=== PATIENT | female | born 1945 | race Caucasian/White ===

== ENCOUNTER → 2021-11-18 | Outpatient (CLI) | payer OTHER ==
--- NOTE | 2021-11-18 17:20 | REP ---
INDICATION: OTHER SPECIFIED SOFT TISSUE DISORDERS COMPARISON: None. TECHNIQUE: AP, lateral, bilateral oblique views right foot. FINDINGS: Osseous structures, joint spaces, and surrounding soft tissues are essentially age-appropriate. No obvious, overt osteoarthritic or inflammatory arthritic changes are appreciated. No evidence for acute or healed injury. No subcutaneous emphysema or foreign body. IMPRESSION: Essentially age-appropriate right foot radiograph series. <Electronically signed by Kye Arce > 11/18/21 [id number]
--- NOTE | 2021-11-18 17:21 | REP ---
INDICATION: OTHER SPECIFIED SOFT TISSUE DISORDERS/XRAY 1ST, LAB 2ND COMPARISON: None. TECHNIQUE: AP, lateral, bilateral oblique views. FINDINGS: Mild swelling over the lateral malleolus is suggested. Subtle cortical irregularity at the medial malleolus likely represents age-related changes. The ankle mortise is normal. There is no evidence for acute fracture or dislocation. No subcutaneous emphysema or foreign body. IMPRESSION: Questionable mild swelling and age-related degenerative changes. <Electronically signed by Kye Arce > 11/18/21 [id number]
[2021-11-18 17:56] LABS: BASO % 0.6 % (0.0-1.0); EOS # 0.1 10^3/uL (0.0-0.5); EOS % 1.7 % (0.0-3.0); HEMATOCRIT 41.4 % (36.0-47.0); HEMOGLOBIN 13.3 g/dl (12.0-15.5); LYMPH # 2.1 10^3/uL (1.5-5.0); LYMPH % 39.4 % (24.0-44.0); MEAN CORPUSCULAR HEMOGLOBIN 27.4 pg (27.0-33.0); MEAN CORPUSCULAR HGB CONC 32.1 g/dl (32.0-36.5); MEAN CORPUSCULAR VOLUME 85.2 fl (80.0-96.0); MONO # 0.5 10^3/uL (0.0-0.8); MONO % 9.8 % (2.0-8.0); NEUTROPHILS # 2.6 10^3/uL (1.5-8.5); NEUTROPHILS % 48.1 % (36.0-66.0); PLATELET COUNT, AUTOMATED 172 10^3/uL (150-450); RED BLOOD COUNT 4.86 10^6/uL (4.00-5.40); WHITE BLOOD COUNT 5.3 10^3/uL (4.0-10.0)
[2021-11-18 18:04] LABS: HEMOGLOBIN A1c 7.3 %
[2021-11-18 18:05] LABS: INR 1.38; PROTHROMBIN TIME 17.4 SECONDS (12.7-14.5)
[2021-11-18 18:34] LABS: CREATININE, URINE 58.1 MG/DL; MAU/CREAT RATIO 1092.9 MCG/MG (0.0-30.0)
[2021-11-18 18:45] LABS: ALBUMIN 3.7 GM/DL (3.2-5.2); ALT/SGPT 32 U/L (12-78); BILIRUBIN,TOTAL 0.2 MG/DL (0.2-1.0); BLOOD UREA NITROGEN 25 MG/DL (7-18); CALCIUM LEVEL 8.7 MG/DL (8.8-10.2); CARBON DIOXIDE LEVEL 29 MEQ/L (21-32); CHLORIDE LEVEL 108 MEQ/L (98-107); CHOLESTEROL LEVEL 164 MG/DL (<200); CHOLESTEROL RISK RATIO 7.454 (<5); CREATININE FOR GFR 0.83 MG/DL (0.55-1.30); GLOMERULAR FILTRATION RATE > 60.0 (>39); GLUCOSE, FASTING 248 MG/DL (70-100); HDL CHOLESTEROL 22 MG/DL (>40); NON-HDL-C 142 MG/DL; POTASSIUM SERUM 3.9 MEQ/L (3.5-5.1); SODIUM LEVEL 142 MEQ/L (136-145); TOTAL 25(OH) VITAMIN D 21.1 NG/ML (30.0-100.0); TRIGLYCERIDES LEVEL 1181 MG/DL (<150)
== END ==
LOC: M RAD 16:50
PROVIDERS: ATTEND Physician Assistant
DX: M79.89 Other specified soft tissue disorders (principal); I10 Essential (primary) hypertension; E11.40 Type 2 diabetes mellitus with diabetic neuropathy, unspecified; Z79.01 Long term (current) use of anticoagulants

== ENCOUNTER → 2021-11-22 | Outpatient (CLI) | payer OTHER ==
--- NOTE | 2021-11-22 11:49 | REP ---
INDICATION: RT FOOT SWELLING PT NEEDS LABS AFTER US. COMPARISON: None. TECHNIQUE: Multiple ultrasonographic images of the deep venous structures of the right lower extremity were obtained from the inguinal ligament to the ankle. Venous compression techniques, color doppler imaging, and augmentation techniques were also obtained where appropriate. As per the ACR guidelines the anterior tibial vein can not be effectively evaluated. Only compression techniques in the calf on the peroneal and posterior tibial veins was attempted/performed. FINDINGS: There is no abnormal echogenic material seen within any of the visualized deep venous structures that would suggest acute thrombosis. Coaptation is unremarkable throughout. Doppler interrogation shows an expected response to respiratory variability and augmentation in the thigh. Compression techniques in the calf were unobtainable. The color flow images show what appears to be a normal vascular pattern throughout the thigh. A 3.9 x 3.3 x 0.7 cm sized complex cystic area was seen in the popliteal fossa. IMPRESSION: There is no ultrasonographic evidence of deep venous thrombosis involving any of the visualized deep venous structures of the right lower extremity as described above. Due to technical parameters calf vein DVT can not be ruled out. 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 <Electronically signed by Tom Lynch > 11/22/21 [id number]
[2021-11-22 12:22] LABS: INR 1.92; PROTHROMBIN TIME 22.4 SECONDS (12.7-14.5)
== END ==
LOC: M RAD 11:10
PROVIDERS: ATTEND Physician Assistant
DX: R22.41 Localized swelling, mass and lump, right lower limb (principal)

== ENCOUNTER → 2021-12-01 | Outpatient (REF) | payer OTHER ==
[2021-12-01 16:17] LABS: BASO % 0.4 % (0.0-1.0); EOS # 0.1 10^3/uL (0.0-0.5); EOS % 1.5 % (0.0-3.0); HEMATOCRIT 41.8 % (36.0-47.0); LYMPH # 1.8 10^3/uL (1.5-5.0); LYMPH % 33.6 % (24.0-44.0); MEAN CORPUSCULAR HEMOGLOBIN 26.6 pg (27.0-33.0); MEAN CORPUSCULAR HGB CONC 31.1 g/dl (32.0-36.5); MEAN CORPUSCULAR VOLUME 85.7 fl (80.0-96.0); MONO # 0.6 10^3/uL (0.0-0.8); MONO % 11.5 % (2.0-8.0); NEUTROPHILS # 2.8 10^3/uL (1.5-8.5); NEUTROPHILS % 52.8 % (36.0-66.0); PLATELET COUNT, AUTOMATED 153 10^3/uL (150-450); RED BLOOD COUNT 4.88 10^6/uL (4.00-5.40); WHITE BLOOD COUNT 5.3 10^3/uL (4.0-10.0)
[2021-12-01 16:58] LABS: ALBUMIN 3.8 GM/DL (3.2-5.2); ALT/SGPT 23 U/L (12-78); BILIRUBIN,TOTAL 0.3 MG/DL (0.2-1.0); BLOOD UREA NITROGEN 21 MG/DL (7-18); CALCIUM LEVEL 8.9 MG/DL (8.8-10.2); CARBON DIOXIDE LEVEL 29 MEQ/L (21-32); CHLORIDE LEVEL 105 MEQ/L (98-107); CHOLESTEROL LEVEL 131 MG/DL (<200); CREATININE FOR GFR 0.83 MG/DL (0.55-1.30); GLOMERULAR FILTRATION RATE > 60.0 (>39); GLUCOSE, FASTING 120 MG/DL (70-100); HDL CHOLESTEROL 50 MG/DL (>40); LDL CHOLESTEROL 49 MG/DL (<100); NON-HDL-C 81 MG/DL; SODIUM LEVEL 139 MEQ/L (136-145); TOTAL 25(OH) VITAMIN D 36.5 NG/ML (30.0-100.0); TOTAL PROTEIN 7.8 GM/DL (6.4-8.2); TRIGLYCERIDES LEVEL 161 MG/DL (<150)
[2021-12-01 18:24] LABS: HEMOGLOBIN A1c 7.6 %
== END ==
LOC: M SFHCCAPE 08:29
PROVIDERS: ATTEND Physician Assistant
DX: I10 Essential (primary) hypertension (principal); E11.40 Type 2 diabetes mellitus with diabetic neuropathy, unspecified

== ENCOUNTER → 2021-12-07 | Outpatient (REF) | payer OTHER ==
[2021-12-07 16:15] LABS: INR 2.35; PROTHROMBIN TIME 26.1 SECONDS (12.7-14.5)
== END ==
LOC: M SFHCCAPE 13:00
PROVIDERS: ATTEND Physician Assistant
DX: Z51.81 Encounter for therapeutic drug level monitoring (principal); Z79.01 Long term (current) use of anticoagulants

== ENCOUNTER → 2021-12-28 | Outpatient (REF) | payer OTHER ==
[2021-12-28 16:27] LABS: INR 1.67; PROTHROMBIN TIME 20.1 SECONDS (12.7-14.5)
== END ==
LOC: M SFHCCAPE 13:01
PROVIDERS: ATTEND Physician Assistant
DX: Z51.81 Encounter for therapeutic drug level monitoring (principal); Z79.01 Long term (current) use of anticoagulants

== ENCOUNTER → 2022-01-04 | Outpatient (REF) | payer OTHER ==
[2022-01-04 16:36] LABS: INR 2.5; PROTHROMBIN TIME 27.4 SECONDS (12.7-14.5)
== END ==
LOC: M SFHCCAPE 10:45
PROVIDERS: ATTEND Physician Assistant
DX: Z51.81 Encounter for therapeutic drug level monitoring (principal); Z79.01 Long term (current) use of anticoagulants

== ENCOUNTER → 2022-01-18 | Outpatient (REF) | payer OTHER ==
[2022-01-18 16:38] LABS: INR 2.13; PROTHROMBIN TIME 24.2 SECONDS (12.7-14.5)
== END ==
LOC: M SFHCCAPE 08:04
PROVIDERS: ATTEND Physician Assistant
DX: Z51.81 Encounter for therapeutic drug level monitoring (principal); Z79.01 Long term (current) use of anticoagulants

== ENCOUNTER → 2022-02-01 | Outpatient (REF) | payer OTHER ==
[2022-02-01 16:32] LABS: INR 2.62; PROTHROMBIN TIME 28.4 SECONDS (12.7-14.5)
== END ==
LOC: M SFHCCAPE 08:01
PROVIDERS: ATTEND Physician Assistant
DX: Z79.01 Long term (current) use of anticoagulants (principal)

== ENCOUNTER → 2022-02-21 | Outpatient (REF) | payer OTHER ==
[2022-02-21 16:18] LABS: BASO % 0.6 % (0.0-1.0); EOS # 0.1 10^3/uL (0.0-0.5); EOS % 1.6 % (0.0-3.0); HEMATOCRIT 39.3 % (36.0-47.0); HEMOGLOBIN 12.8 g/dl (12.0-15.5); LYMPH # 1.6 10^3/uL (1.5-5.0); LYMPH % 31.9 % (24.0-44.0); MEAN CORPUSCULAR HEMOGLOBIN 27.4 pg (27.0-33.0); MEAN CORPUSCULAR HGB CONC 32.6 g/dl (32.0-36.5); MEAN CORPUSCULAR VOLUME 84.2 fl (80.0-96.0); MONO # 0.6 10^3/uL (0.0-0.8); MONO % 11.3 % (2.0-8.0); NEUTROPHILS # 2.6 10^3/uL (1.5-8.5); NEUTROPHILS % 54.2 % (36.0-66.0); PLATELET COUNT, AUTOMATED 148 10^3/uL (150-450); RED BLOOD COUNT 4.67 10^6/uL (4.00-5.40); WHITE BLOOD COUNT 4.9 10^3/uL (4.0-10.0)
[2022-02-21 16:24] LABS: INR 2.38; PROTHROMBIN TIME 26.4 SECONDS (12.7-14.5)
[2022-02-21 16:45] LABS: ALBUMIN 3.9 GM/DL (3.2-5.2); ALT/SGPT 31 U/L (12-78); BILIRUBIN,TOTAL 0.2 MG/DL (0.2-1.0); BLOOD UREA NITROGEN 20 MG/DL (7-18); CALCIUM LEVEL 8.8 MG/DL (8.8-10.2); CARBON DIOXIDE LEVEL 30 MEQ/L (21-32); CHLORIDE LEVEL 106 MEQ/L (98-107); CHOLESTEROL LEVEL 116 MG/DL (<200); CHOLESTEROL RISK RATIO 3.052 (<5); CREATININE FOR GFR 0.82 MG/DL (0.55-1.30); GLOMERULAR FILTRATION RATE > 60.0 (>39); GLUCOSE, FASTING 162 MG/DL (70-100); HDL CHOLESTEROL 38 MG/DL (>40); LDL CHOLESTEROL 16 MG/DL (<100); NON-HDL-C 78 MG/DL; POTASSIUM SERUM 4.1 MEQ/L (3.5-5.1); SODIUM LEVEL 140 MEQ/L (136-145); TOTAL PROTEIN 7.7 GM/DL (6.4-8.2); TRIGLYCERIDES LEVEL 308 MG/DL (<150)
[2022-02-21 16:52] LABS: TOTAL 25(OH) VITAMIN D 58.7 NG/ML (30.0-100.0)
== END ==
LOC: M SFHCCAPE 08:27
PROVIDERS: ATTEND Physician Assistant
DX: E11.40 Type 2 diabetes mellitus with diabetic neuropathy, unspecified (principal); Z79.01 Long term (current) use of anticoagulants; E55.9 Vitamin D deficiency, unspecified

== ENCOUNTER → 2022-03-09 | Outpatient (REF) | payer OTHER ==
[2022-03-09 16:28] LABS: INR 1.81; PROTHROMBIN TIME 21.4 SECONDS (12.7-14.5)
== END ==
LOC: M SFHCCAPE 08:22
PROVIDERS: ATTEND Physician Assistant
DX: E11.40 Type 2 diabetes mellitus with diabetic neuropathy, unspecified (principal); Z79.01 Long term (current) use of anticoagulants; E55.9 Vitamin D deficiency, unspecified

== ENCOUNTER → 2022-03-17 | Outpatient (REF) | payer OTHER ==
[2022-03-17 16:26] LABS: INR 2.24; PROTHROMBIN TIME 25.2 SECONDS (12.7-14.5)
== END ==
LOC: M SFHCCAPE 08:26
PROVIDERS: ATTEND Physician Assistant
DX: E11.40 Type 2 diabetes mellitus with diabetic neuropathy, unspecified (principal); Z79.01 Long term (current) use of anticoagulants; E55.9 Vitamin D deficiency, unspecified

== ENCOUNTER → 2022-04-07 | Outpatient (REF) | payer OTHER ==
[2022-04-07 16:15] LABS: INR 1.96; PROTHROMBIN TIME 22.7 SECONDS (12.7-14.5)
== END ==
LOC: M SFHCCAPE 13:27
PROVIDERS: ATTEND Physician Assistant
DX: Z79.01 Long term (current) use of anticoagulants (principal)

== ENCOUNTER → 2022-04-14 | Outpatient (REF) | payer OTHER ==
[2022-04-14 16:53] LABS: INR 2.77; PROTHROMBIN TIME 29.6 SECONDS (12.7-14.5)
== END ==
LOC: M SFHCCAPE 07:35
PROVIDERS: ATTEND Physician Assistant
DX: E11.40 Type 2 diabetes mellitus with diabetic neuropathy, unspecified (principal); Z79.01 Long term (current) use of anticoagulants; E55.9 Vitamin D deficiency, unspecified

== ENCOUNTER → 2022-04-25 | Outpatient (CLI) | payer OTHER ==
[2022-04-25 11:47] LABS: BASO % 0.4 % (0.0-1.0); EOS # 0.1 10^3/uL (0.0-0.5); EOS % 1.2 % (0.0-3.0); HEMATOCRIT 40.3 % (36.0-47.0); LYMPH # 1.8 10^3/uL (1.5-5.0); LYMPH % 35.4 % (24.0-44.0); MEAN CORPUSCULAR HEMOGLOBIN 27.3 pg (27.0-33.0); MEAN CORPUSCULAR HGB CONC 32.3 g/dl (32.0-36.5); MEAN CORPUSCULAR VOLUME 84.5 fl (80.0-96.0); MONO # 0.5 10^3/uL (0.0-0.8); MONO % 10.1 % (2.0-8.0); NEUTROPHILS # 2.6 10^3/uL (1.5-8.5); NEUTROPHILS % 52.5 % (36.0-66.0); PLATELET COUNT, AUTOMATED 131 10^3/uL (150-450); RED BLOOD COUNT 4.77 10^6/uL (4.00-5.40)
[2022-04-25 11:55] LABS: INR 3.07
[2022-04-25 12:22] LABS: ALBUMIN 3.5 GM/DL (3.2-5.2); ALT/SGPT 32 U/L (12-78); BILIRUBIN,TOTAL 0.3 MG/DL (0.2-1.0); BLOOD UREA NITROGEN 17 MG/DL (7-18); CALCIUM LEVEL 9.4 MG/DL (8.8-10.2); CARBON DIOXIDE LEVEL 29 MEQ/L (21-32); CHLORIDE LEVEL 107 MEQ/L (98-107); CHOLESTEROL LEVEL 154 MG/DL (<200); CHOLESTEROL RISK RATIO 3.422 (<5); CREATININE FOR GFR 0.79 MG/DL (0.55-1.30); GLOMERULAR FILTRATION RATE > 60.0 (>39); GLUCOSE, FASTING 120 MG/DL (70-100); HDL CHOLESTEROL 45 MG/DL (>40); NON-HDL-C 109 MG/DL; POTASSIUM SERUM 4.2 MEQ/L (3.5-5.1); SODIUM LEVEL 142 MEQ/L (136-145); TOTAL 25(OH) VITAMIN D 29.2 NG/ML (30.0-100.0); TOTAL PROTEIN 7.1 GM/DL (6.4-8.2); TRIGLYCERIDES LEVEL 443 MG/DL (<150)
[2022-04-25 12:50] LABS: MAU/CREAT RATIO 962.1 MCG/MG (0.0-30.0)
[2022-04-25 12:59] LABS: HEMOGLOBIN A1c 8.6 %
== END ==
LOC: M LAB 10:59
PROVIDERS: ATTEND Physician Assistant
DX: E11.40 Type 2 diabetes mellitus with diabetic neuropathy, unspecified (principal)

== ENCOUNTER → 2022-05-05 | Outpatient (REF) | payer OTHER ==
[2022-05-05 16:37] LABS: INR 2.49; PROTHROMBIN TIME 27.3 SECONDS (12.7-14.5)
== END ==
LOC: M SFHCCAPE 08:54
PROVIDERS: ATTEND Physician Assistant
DX: E11.40 Type 2 diabetes mellitus with diabetic neuropathy, unspecified (principal); Z79.01 Long term (current) use of anticoagulants; E55.9 Vitamin D deficiency, unspecified

== ENCOUNTER → 2022-05-12 | Outpatient (REF) | payer OTHER ==
[2022-05-12 16:34] LABS: INR 2.12; PROTHROMBIN TIME 24.1 SECONDS (12.7-14.5)
[2022-05-12 16:41] LABS: BLOOD UREA NITROGEN 22 MG/DL (7-18); CALCIUM LEVEL 9.2 MG/DL (8.8-10.2); CARBON DIOXIDE LEVEL 27 MEQ/L (21-32); CHLORIDE LEVEL 108 MEQ/L (98-107); GLOMERULAR FILTRATION RATE > 60.0 (>39); GLUCOSE, FASTING 221 MG/DL (70-100); POTASSIUM SERUM 4.8 MEQ/L (3.5-5.1); SODIUM LEVEL 140 MEQ/L (136-145)
[2022-05-12 16:44] LABS: BASO % 0.7 % (0.0-1.0); EOS # 0.1 10^3/uL (0.0-0.5); EOS % 1.9 % (0.0-3.0); HEMATOCRIT 38.8 % (36.0-47.0); HEMOGLOBIN 12.6 g/dl (12.0-15.5); LYMPH # 1.4 10^3/uL (1.5-5.0); MEAN CORPUSCULAR HGB CONC 32.5 g/dl (32.0-36.5); MEAN CORPUSCULAR VOLUME 86.2 fl (80.0-96.0); MONO # 0.5 10^3/uL (0.0-0.8); MONO % 12.8 % (2.0-8.0); NEUTROPHILS # 2.2 10^3/uL (1.5-8.5); NEUTROPHILS % 52.4 % (36.0-66.0); PLATELET COUNT, AUTOMATED 150 10^3/uL (150-450); WHITE BLOOD COUNT 4.2 10^3/uL (4.0-10.0)
== END ==
LOC: M SFHCCAPE 07:36
PROVIDERS: ATTEND Physician Assistant
DX: E11.69 Type 2 diabetes mellitus with other specified complication (principal)

== ENCOUNTER → 2022-05-31 | Outpatient (REF) | payer OTHER ==
[2022-05-31 16:09] LABS: INR 2.14; PROTHROMBIN TIME 24.3 SECONDS (12.7-14.5)
== END ==
LOC: M SFHCCAPE 10:41
PROVIDERS: ATTEND Physician Assistant
DX: E11.40 Type 2 diabetes mellitus with diabetic neuropathy, unspecified (principal); Z79.01 Long term (current) use of anticoagulants; E55.9 Vitamin D deficiency, unspecified

== ENCOUNTER → 2022-06-22 | Outpatient (REF) | payer OTHER ==
[2022-06-22 17:25] LABS: INR 2.21
== END ==
LOC: M SFHCCAPE 07:45
PROVIDERS: ATTEND Physician Assistant
DX: E11.40 Type 2 diabetes mellitus with diabetic neuropathy, unspecified (principal); Z79.01 Long term (current) use of anticoagulants; E55.9 Vitamin D deficiency, unspecified

== ENCOUNTER → 2022-07-06 | Outpatient (REF) | payer OTHER ==
[2022-07-06 17:42] LABS: PROTHROMBIN TIME 23.1 SECONDS (12.7-14.5)
== END ==
LOC: M SFHCCAPE 07:52
PROVIDERS: ATTEND Physician Assistant
DX: D68.51 Activated protein C resistance (principal); Z79.01 Long term (current) use of anticoagulants

== ENCOUNTER → 2022-07-19 | Outpatient (REF) | payer OTHER ==
[2022-07-19 17:33] LABS: BASO % 0.6 % (0.0-1.0); EOS # 0.1 10^3/uL (0.0-0.5); EOS % 1.7 % (0.0-3.0); HEMOGLOBIN 13.3 g/dl (12.0-15.5); LYMPH # 1.6 10^3/uL (1.5-5.0); LYMPH % 28.8 % (24.0-44.0); MEAN CORPUSCULAR HEMOGLOBIN 26.9 pg (27.0-33.0); MEAN CORPUSCULAR HGB CONC 31.7 g/dl (32.0-36.5); MEAN CORPUSCULAR VOLUME 84.8 fl (80.0-96.0); MONO # 0.6 10^3/uL (0.0-0.8); MONO % 11.6 % (2.0-8.0); NEUTROPHILS # 3.1 10^3/uL (1.5-8.5); NEUTROPHILS % 57.1 % (36.0-66.0); PLATELET COUNT, AUTOMATED 139 10^3/uL (150-450); RED BLOOD COUNT 4.95 10^6/uL (4.00-5.40); WHITE BLOOD COUNT 5.4 10^3/uL (4.0-10.0)
[2022-07-19 17:46] LABS: INR 1.96; PROTHROMBIN TIME 22.8 SECONDS (12.7-14.5)
[2022-07-19 18:27] LABS: BLOOD UREA NITROGEN 27 MG/DL (7-18); CALCIUM LEVEL 10.2 MG/DL (8.8-10.2); CARBON DIOXIDE LEVEL 25 MEQ/L (21-32); CHLORIDE LEVEL 106 MEQ/L (98-107); CREATININE FOR GFR 0.89 MG/DL (0.55-1.30); GLOMERULAR FILTRATION RATE > 60.0 (>39); GLUCOSE, FASTING 135 MG/DL (70-100); POTASSIUM SERUM 4.5 MEQ/L (3.5-5.1); SODIUM LEVEL 138 MEQ/L (136-145)
== END ==
LOC: M SFHCCAPE 09:11
PROVIDERS: ATTEND Physician Assistant
DX: Z79.01 Long term (current) use of anticoagulants (principal); D68.51 Activated protein C resistance

== ENCOUNTER → 2022-08-01 | Outpatient (REF) | payer OTHER ==
[2022-08-01 18:11] LABS: INR 1.04; PROTHROMBIN TIME 14.1 SECONDS (12.7-14.5)
== END ==
LOC: M SFHCCAPE 13:36
PROVIDERS: ATTEND Physician Assistant
DX: D68.51 Activated protein C resistance (principal); Z79.01 Long term (current) use of anticoagulants

== ENCOUNTER → 2022-08-04 | Outpatient (REF) | payer OTHER ==
[2022-08-04 17:27] LABS: INR 1.8; PROTHROMBIN TIME 21.3 SECONDS (12.7-14.5)
== END ==
LOC: M SFHCCAPE 11:24
PROVIDERS: ATTEND Physician Assistant
DX: Z79.01 Long term (current) use of anticoagulants (principal)

== ENCOUNTER → 2022-08-05 | Outpatient (CLI) | payer OTHER ==
[2022-08-05 14:40] LABS: INR 1.79; PROTHROMBIN TIME 21.2 SECONDS (12.7-14.5)
== END ==
LOC: M LAB 13:32
PROVIDERS: ATTEND Physician Assistant
DX: Z51.81 Encounter for therapeutic drug level monitoring (principal); Z79.01 Long term (current) use of anticoagulants

== ENCOUNTER → 2022-08-09 | Outpatient (REF) | payer OTHER ==
[2022-08-09 18:19] LABS: INR 1.95; PROTHROMBIN TIME 22.6 SECONDS (12.7-14.5)
== END ==
LOC: M SFHCCAPE 10:37
PROVIDERS: ATTEND Physician Assistant
DX: Z79.01 Long term (current) use of anticoagulants (principal)

== ENCOUNTER → 2022-08-15 | Outpatient (REF) | payer OTHER ==
[2022-08-15 17:43] LABS: INR 1.99
== END ==
LOC: M SFHCCAPE 13:20
PROVIDERS: ATTEND Physician Assistant
DX: Z79.01 Long term (current) use of anticoagulants (principal)

== ENCOUNTER → 2022-08-22 | Outpatient (REF) | payer OTHER ==
[2022-08-22 19:03] LABS: BASO % 0.7 % (0.0-1.0); EOS # 0.1 10^3/uL (0.0-0.5); EOS % 1.7 % (0.0-3.0); HEMATOCRIT 41.8 % (36.0-47.0); HEMOGLOBIN 12.9 g/dl (12.0-15.5); LYMPH # 1.5 10^3/uL (1.5-5.0); LYMPH % 35.8 % (24.0-44.0); MEAN CORPUSCULAR HGB CONC 30.9 g/dl (32.0-36.5); MEAN CORPUSCULAR VOLUME 87.4 fl (80.0-96.0); MONO # 0.5 10^3/uL (0.0-0.8); MONO % 11.8 % (2.0-8.0); NEUTROPHILS # 2.1 10^3/uL (1.5-8.5); NEUTROPHILS % 49.8 % (36.0-66.0); PLATELET COUNT, AUTOMATED 128 10^3/uL (150-450); RED BLOOD COUNT 4.78 10^6/uL (4.00-5.40); WHITE BLOOD COUNT 4.2 10^3/uL (4.0-10.0)
[2022-08-22 19:04] LABS: ALBUMIN 3.6 GM/DL (3.2-5.2); BILIRUBIN,TOTAL 0.4 MG/DL (0.2-1.0); CALCIUM LEVEL 8.9 MG/DL (8.8-10.2); CHOLESTEROL RISK RATIO 2.863 (<5); CREATININE FOR GFR 1.01 MG/DL (0.55-1.30); GLOMERULAR FILTRATION RATE 56.7 (>39); TOTAL PROTEIN 7.4 GM/DL (6.4-8.2)
[2022-08-22 19:10] LABS: INR 2.15; PROTHROMBIN TIME 24.4 SECONDS (12.7-14.5)
[2022-08-22 19:32] LABS: HEMOGLOBIN A1c 7.3 %
[2022-08-22 20:14] LABS: TOTAL 25(OH) VITAMIN D 49.7 NG/ML (30.0-100.0)
== END ==
LOC: M SFHCCAPE 07:49
PROVIDERS: ATTEND Physician Assistant
DX: I10 Essential (primary) hypertension (principal); Z79.01 Long term (current) use of anticoagulants

== ENCOUNTER → 2022-09-01 | Outpatient (REF) | payer OTHER ==
[2022-09-01 18:25] LABS: INR 2.97; PROTHROMBIN TIME 31.4 SECONDS (12.5-14.5)
== END ==
LOC: M SFHCCAPE 08:19
PROVIDERS: ATTEND Physician Assistant
DX: Z79.01 Long term (current) use of anticoagulants (principal)

== ENCOUNTER → 2022-09-14 | Outpatient (REF) | payer OTHER ==
[2022-09-14 17:37] LABS: INR 2.38; PROTHROMBIN TIME 26.4 SECONDS (12.5-14.5)
== END ==
LOC: M SFHCCAPE 09:16
PROVIDERS: ATTEND Physician Assistant
DX: Z79.01 Long term (current) use of anticoagulants (principal)

== ENCOUNTER → 2022-09-28 | Outpatient (REF) | payer OTHER ==
[2022-09-28 18:18] LABS: INR 2.63; PROTHROMBIN TIME 28.5 SECONDS (12.5-14.5)
== END ==
LOC: M SFHCCAPE 07:49
PROVIDERS: ATTEND Physician Assistant
DX: D68.51 Activated protein C resistance (principal); Z79.01 Long term (current) use of anticoagulants

== ENCOUNTER → 2022-10-18 | Outpatient (REF) | payer OTHER ==
[2022-10-18 18:34] LABS: INR 2.82; PROTHROMBIN TIME 30.1 SECONDS (12.5-14.5)
== END ==
LOC: M SFHCCAPE 11:14
PROVIDERS: ATTEND Physician Assistant
DX: Z79.01 Long term (current) use of anticoagulants (principal); D68.51 Activated protein C resistance

== ENCOUNTER → 2022-11-08 | Outpatient (REF) | payer OTHER ==
[2022-11-08 17:23] LABS: INR 2.88; PROTHROMBIN TIME 30.6 SECONDS (12.5-14.5)
== END ==
LOC: M SFHCCAPE 08:18
PROVIDERS: ATTEND Physician Assistant
DX: Z79.01 Long term (current) use of anticoagulants (principal); D68.51 Activated protein C resistance

== ENCOUNTER → 2022-11-23 | Outpatient (REF) | payer OTHER ==
[2022-11-23 17:55] LABS: INR 3.03; PROTHROMBIN TIME 31.9 SECONDS (12.5-14.5)
== END ==
LOC: M SFHCCAPE 08:18
PROVIDERS: ATTEND Physician Assistant
DX: Z79.01 Long term (current) use of anticoagulants (principal); D68.51 Activated protein C resistance

== ENCOUNTER → 2022-12-06 | Outpatient (REF) | payer MEDICARE ==
[2022-12-06 18:18] LABS: INR 2.2; PROTHROMBIN TIME 24.8 SECONDS (12.5-14.5)
== END ==
LOC: M SFHCCAPE 13:47
PROVIDERS: ATTEND Physician Assistant
DX: Z79.01 Long term (current) use of anticoagulants (principal)

== ENCOUNTER → 2022-12-20 | Outpatient (REF) | payer MEDICARE ==
[2022-12-20 17:55] LABS: INR 2.22
== END ==
LOC: M SFHCCAPE 07:59
PROVIDERS: ATTEND Physician Assistant
DX: D68.51 Activated protein C resistance (principal); Z79.01 Long term (current) use of anticoagulants

== ENCOUNTER → 2023-01-18 | Outpatient (REF) | payer MEDICARE ==
[2023-01-18 17:26] LABS: INR 1.73; PROTHROMBIN TIME 20.6 SECONDS (12.5-14.5)
[2023-01-18 17:35] LABS: ALBUMIN 3.8 G/DL (3.2-5.2); ALKALINE PHOSPHATASE 43 U/L (46-116); ALT/SGPT 23 U/L (7.0-40); AST/SGOT 19 U/L (<34); BILIRUBIN,TOTAL 0.5 MG/DL (0.3-1.2); BLOOD UREA NITROGEN 22 MG/DL (9-23); CALCIUM LEVEL 9.1 MG/DL (8.3-10.6); CARBON DIOXIDE LEVEL 30 MMOL/L (20-31); CHLORIDE LEVEL 106 MMOL/L (98-107); CHOLESTEROL LEVEL 133 MG/DL (<200); CHOLESTEROL RISK RATIO 2.65 (<5); CREATININE FOR GFR 0.74 MG/DL (0.55-1.30); GLOMERULAR FILTRATION RATE > 60.0 (>39); GLUCOSE, FASTING 100 MG/DL (74-106); HDL CHOLESTEROL 50.1 MG/DL (>40); LDL CHOLESTEROL 47.7 MG/DL (<100); NON-HDL-C 83 MG/DL; POTASSIUM SERUM 4.1 MMOL/L (3.5-5.1); SODIUM LEVEL 142 MMOL/L (136-145); TOTAL PROTEIN 7.2 G/DL (5.7-8.2); TRIGLYCERIDES LEVEL 176 MG/DL (<150)
[2023-01-18 17:56] LABS: HEMOGLOBIN A1c 8.2 % (4.0-6.0)
== END ==
LOC: M SFHCCAPE 07:51
PROVIDERS: ATTEND Physician Assistant
DX: D68.51 Activated protein C resistance (principal); E11.40 Type 2 diabetes mellitus with diabetic neuropathy, unspecified; Z79.01 Long term (current) use of anticoagulants

== ENCOUNTER → 2023-01-23 | Outpatient (REF) | payer MEDICARE ==
[2023-01-23 18:24] LABS: INR 1.85; PROTHROMBIN TIME 21.7 SECONDS (12.5-14.5)
== END ==
LOC: M SFHCCAPE 13:49
PROVIDERS: ATTEND Physician Assistant
DX: Z79.01 Long term (current) use of anticoagulants (principal)

== ENCOUNTER → 2023-01-31 | Outpatient (REF) | payer MEDICARE ==
[2023-01-31 17:20] LABS: INR 2.34
== END ==
LOC: M SFHCCAPE 09:27
PROVIDERS: ATTEND Physician Assistant
DX: Z79.01 Long term (current) use of anticoagulants (principal)

== ENCOUNTER → 2023-02-14 | Outpatient (REF) | payer MEDICARE ==
[2023-02-14 17:38] LABS: INR 1.91; PROTHROMBIN TIME 22.2 SECONDS (12.5-14.5)
== END ==
LOC: M SFHCCAPE 08:00
PROVIDERS: ATTEND Physician Assistant
DX: I48.91 Unspecified atrial fibrillation (principal); Z79.01 Long term (current) use of anticoagulants

== ENCOUNTER → 2023-02-22 | Outpatient (REF) | payer MEDICARE ==
[2023-02-22 18:11] LABS: INR 2.15; PROTHROMBIN TIME 24.4 SECONDS (12.5-14.5)
== END ==
LOC: M SFHCCAPE 07:52
PROVIDERS: ATTEND Physician Assistant
DX: Z79.01 Long term (current) use of anticoagulants (principal)

== ENCOUNTER → 2023-03-21 | Outpatient (REF) | payer MEDICARE ==
[2023-03-21 18:17] LABS: INR 2.52; PROTHROMBIN TIME 27.6 SECONDS (12.5-14.5)
== END ==
LOC: M SFHCCAPE 08:37
PROVIDERS: ATTEND Physician Assistant
DX: Z79.01 Long term (current) use of anticoagulants (principal)

== ENCOUNTER → 2023-04-11 | Outpatient (REF) | payer MEDICARE ==
[2023-04-11 17:17] LABS: INR 2.38; PROTHROMBIN TIME 26.4 SECONDS (12.5-14.5)
== END ==
LOC: M SFHCCAPE 08:09
PROVIDERS: ATTEND Physician Assistant
DX: Z79.01 Long term (current) use of anticoagulants (principal)

== ENCOUNTER → 2023-05-24 | Outpatient (REF) | payer MEDICARE ==
[2023-05-24 17:29] LABS: INR 1.85; PROTHROMBIN TIME 21.7 SECONDS (12.5-14.5)
== END ==
LOC: M SFHCCAPE 07:52
PROVIDERS: ATTEND Physician Assistant
DX: D68.51 Activated protein C resistance (principal)

== ENCOUNTER → 2023-05-31 | Outpatient (REF) | payer MEDICARE ==
[2023-05-31 17:32] LABS: INR 2.06; PROTHROMBIN TIME 23.6 SECONDS (12.5-14.5)
== END ==
LOC: M SFHCCAPE 08:08
PROVIDERS: ATTEND Physician Assistant
DX: D68.51 Activated protein C resistance (principal)

== ENCOUNTER → 2023-06-19 | Outpatient (REF) | payer MEDICARE ==
[2023-06-19 17:50] LABS: INR 2.22
== END ==
LOC: M SFHCCAPE 07:48
PROVIDERS: ATTEND Physician Assistant
DX: Z79.01 Long term (current) use of anticoagulants (principal)

== ENCOUNTER → 2023-07-04 | Outpatient (REF) | payer MEDICARE | LOC: M SFHCCAPE 07:57 | PROVIDERS: ATTEND Physician Assistant | DX: Z79.01 Long term (current) use of anticoagulants (principal) ==

== ENCOUNTER → 2023-07-05 | Outpatient (REF) | payer MEDICARE ==
[2023-07-05 17:26] LABS: INR 2.34; PROTHROMBIN TIME 25.1 SECONDS (12.5-14.5)
== END ==
LOC: M SFHCCAPE 16:52
PROVIDERS: ATTEND Physician Assistant
DX: Z79.01 Long term (current) use of anticoagulants (principal)

== ENCOUNTER → 2023-07-25 | Outpatient (REF) | payer MEDICARE ==
[2023-07-25 16:52] LABS: INR 2.26; PROTHROMBIN TIME 24.4 SECONDS (12.5-14.5)
[2023-07-25 17:57] LABS: HEMOGLOBIN A1c 7.6 % (4.0-6.0)
== END ==
LOC: M SFHCCAPE 08:49
PROVIDERS: ATTEND Physician Assistant
DX: Z79.01 Long term (current) use of anticoagulants (principal); I10 Essential (primary) hypertension; E11.40 Type 2 diabetes mellitus with diabetic neuropathy, unspecified

== ENCOUNTER → 2023-09-05 | Outpatient (REF) | payer MEDICARE ==
[2023-09-05 18:01] LABS: INR 2.46; PROTHROMBIN TIME 26.1 SECONDS (12.5-14.5)
== END ==
LOC: M SFHCCAPE 13:13
PROVIDERS: ATTEND Physician Assistant Medical
DX: Z79.01 Long term (current) use of anticoagulants (principal)

== ENCOUNTER → 2023-09-27 | Outpatient (REF) | payer MEDICARE ==
[2023-09-27 17:37] LABS: INR 2.38; PROTHROMBIN TIME 25.2 SECONDS (12.5-14.5)
== END ==
LOC: M SFHCCAPE 10:36
PROVIDERS: ATTEND Physician Assistant Medical
DX: Z79.01 Long term (current) use of anticoagulants (principal)

== ENCOUNTER → 2023-12-07 | Outpatient (REF) | payer MEDICARE ==
[2023-12-07 17:43] LABS: INR 2.32; PROTHROMBIN TIME 24.6 SECONDS (12.5-14.5)
== END ==
LOC: M SFHCCAPE 09:05
PROVIDERS: ATTEND Physician Assistant Medical
DX: Z79.01 Long term (current) use of anticoagulants (principal)

== ENCOUNTER → 2024-01-15 | Outpatient (REF) | payer MEDICARE ==
[2024-01-15 17:23] LABS: BASO % 0.5 % (0.0-1.0); EOS # 0.1 10^3/uL (0.0-0.5); LYMPH # 1.3 10^3/uL (1.5-5.0); LYMPH % 30.2 % (24.0-44.0); MEAN CORPUSCULAR HEMOGLOBIN 27.2 pg (27.0-33.0); MEAN CORPUSCULAR HGB CONC 31.6 g/dl (32.0-36.5); MEAN CORPUSCULAR VOLUME 86.2 fl (80.0-96.0); MONO # 0.6 10^3/uL (0.0-0.8); MONO % 13.1 % (2.0-8.0); NEUTROPHILS # 2.4 10^3/uL (1.5-8.5); PLATELET COUNT, AUTOMATED 152 10^3/uL (150-450); RED BLOOD COUNT 4.41 10^6/uL (4.00-5.40); WHITE BLOOD COUNT 4.4 10^3/uL (4.0-10.0)
[2024-01-15 17:28] LABS: HEMOGLOBIN A1c 8.5 % (4.0-6.0)
[2024-01-15 17:34] LABS: INR 3.37; PROTHROMBIN TIME 32.8 SECONDS (12.5-14.5)
[2024-01-15 17:46] LABS: ALBUMIN 3.7 G/DL (3.2-5.2); ALKALINE PHOSPHATASE 48 U/L (46-116); ALT/SGPT 22 U/L (7.0-40); AST/SGOT 19 U/L (<34); BILIRUBIN,TOTAL 0.5 MG/DL (0.3-1.2); BLOOD UREA NITROGEN 22 MG/DL (9-23); CARBON DIOXIDE LEVEL 30 MMOL/L (20-31); CHLORIDE LEVEL 107 MMOL/L (98-107); CREATININE FOR GFR 0.78 MG/DL (0.55-1.30); GLOMERULAR FILTRATION RATE > 60.0 (>39); GLUCOSE, FASTING 97 MG/DL (74-106); POTASSIUM SERUM 4.7 MMOL/L (3.5-5.1); SODIUM LEVEL 139 MMOL/L (136-145); TOTAL PROTEIN 7.4 G/DL (5.7-8.2)
[2024-01-15 17:47] LABS: TOTAL 25(OH) VITAMIN D 34.6 NG/ML (20.0-100.0)
[2024-01-15 17:48] LABS: THYROID STIMULATING HORMONE 2.064 uIU/ML (0.55-4.78)
== END ==
LOC: M SFHCCAPE 09:08
PROVIDERS: ATTEND Physician Assistant Medical
DX: E11.40 Type 2 diabetes mellitus with diabetic neuropathy, unspecified (principal); Z79.01 Long term (current) use of anticoagulants; E55.9 Vitamin D deficiency, unspecified; I10 Essential (primary) hypertension; D68.51 Activated protein C resistance; I48.91 Unspecified atrial fibrillation

== ENCOUNTER → 2024-01-25 | Outpatient (REF) | payer MEDICARE ==
[2024-01-25 16:42] LABS: INR 2.36; PROTHROMBIN TIME 24.9 SECONDS (12.5-14.5)
== END ==
LOC: M SFHCCAPE 09:15
PROVIDERS: ATTEND Physician Assistant Medical
DX: Z79.01 Long term (current) use of anticoagulants (principal)

== ENCOUNTER → 2024-02-08 | Outpatient (REF) | payer MEDICARE ==
[2024-02-08 17:19] LABS: INR 1.68; PROTHROMBIN TIME 19.2 SECONDS (12.5-14.5)
== END ==
LOC: M SFHCCAPE 10:01
PROVIDERS: ATTEND Physician Assistant Medical
DX: Z79.01 Long term (current) use of anticoagulants (principal)

== ENCOUNTER → 2024-02-15 | Outpatient (REF) | payer MEDICARE ==
[2024-02-15 17:18] LABS: INR 2.14; PROTHROMBIN TIME 23.2 SECONDS (12.5-14.5)
== END ==
LOC: M SFHCCAPE 09:46
PROVIDERS: ATTEND Physician Assistant Medical
DX: Z79.01 Long term (current) use of anticoagulants (principal)

== ENCOUNTER → 2024-02-28 | Outpatient (REF) | payer MEDICARE ==
[2024-02-28 17:18] LABS: INR 2.38; PROTHROMBIN TIME 25.1 SECONDS (12.5-14.5)
== END ==
LOC: M SFHCCAPE 09:27
PROVIDERS: ATTEND Physician Assistant Medical
DX: Z79.01 Long term (current) use of anticoagulants (principal)

== ENCOUNTER → 2024-03-13 | Outpatient (REF) | payer MEDICARE ==
[2024-03-13 16:48] LABS: INR 2.11; PROTHROMBIN TIME 22.9 SECONDS (12.5-14.5)
== END ==
LOC: M SFHCCAPE 09:07
PROVIDERS: ATTEND Physician Assistant Medical
DX: Z79.01 Long term (current) use of anticoagulants (principal)

== ENCOUNTER → 2024-04-11 | Outpatient (REF) | payer MEDICARE ==
[2024-04-11 17:40] LABS: INR 2.28; PROTHROMBIN TIME 24.3 SECONDS (12.5-14.5)
== END ==
LOC: M SFHCCAPE 09:20
PROVIDERS: ATTEND Physician Assistant Medical
DX: Z79.01 Long term (current) use of anticoagulants (principal)

== ENCOUNTER → 2024-04-23 | Outpatient (REF) | payer MEDICARE ==
[2024-04-23 17:41] LABS: ALBUMIN 3.8 G/DL (3.2-5.2); ALKALINE PHOSPHATASE 41 U/L (46-116); ALT/SGPT 27 U/L (7.0-40); AST/SGOT 21 U/L (<34); BILIRUBIN,TOTAL 0.5 MG/DL (0.3-1.2); BLOOD UREA NITROGEN 27 MG/DL (9-23); CARBON DIOXIDE LEVEL 31 MMOL/L (20-31); CHLORIDE LEVEL 105 MMOL/L (98-107); CHOLESTEROL LEVEL 134 MG/DL (<200); CHOLESTEROL RISK RATIO 3.01 (<5); CREATININE FOR GFR 0.87 MG/DL (0.55-1.30); GLOMERULAR FILTRATION RATE > 60.0 (>39); GLUCOSE, FASTING 103 MG/DL (74-106); HDL CHOLESTEROL 44.4 MG/DL (>40); NON-HDL-C 89.6 MG/DL; POTASSIUM SERUM 4.1 MMOL/L (3.5-5.1); SODIUM LEVEL 141 MMOL/L (136-145); TRIGLYCERIDES LEVEL 223 MG/DL (<150)
[2024-04-23 17:59] LABS: BASO % 0.7 % (0.0-1.0); EOS # 0.1 10^3/uL (0.0-0.5); EOS % 2.2 % (0.0-3.0); HEMATOCRIT 37.7 % (36.0-47.0); LYMPH # 1.5 10^3/uL (1.5-5.0); LYMPH % 37.9 % (24.0-44.0); MEAN CORPUSCULAR HEMOGLOBIN 27.5 pg (27.0-33.0); MEAN CORPUSCULAR HGB CONC 31.8 g/dl (32.0-36.5); MEAN CORPUSCULAR VOLUME 86.3 fl (80.0-96.0); MONO # 0.6 10^3/uL (0.0-0.8); MONO % 13.7 % (2.0-8.0); NEUTROPHILS # 1.8 10^3/uL (1.5-8.5); NEUTROPHILS % 45.5 % (36.0-66.0); PLATELET COUNT, AUTOMATED 151 10^3/uL (150-450); RED BLOOD COUNT 4.37 10^6/uL (4.00-5.40)
== END ==
LOC: M SFHCCAPE 09:14
PROVIDERS: ATTEND Physician Assistant Medical
DX: E11.40 Type 2 diabetes mellitus with diabetic neuropathy, unspecified (principal); E78.2 Mixed hyperlipidemia; Z79.01 Long term (current) use of anticoagulants

== ENCOUNTER → 2024-05-14 | Outpatient (REF) | payer MEDICARE ==
[2024-05-14 17:00] LABS: INR 1.78; PROTHROMBIN TIME 20.1 SECONDS (12.5-14.5)
== END ==
LOC: M SFHCCAPE 09:27
PROVIDERS: ATTEND Physician Assistant Medical
DX: Z79.01 Long term (current) use of anticoagulants (principal)

== ENCOUNTER → 2024-05-22 | Outpatient (REF) | payer MEDICARE ==
[2024-05-22 16:59] LABS: INR 2.62; PROTHROMBIN TIME 27.1 SECONDS (12.5-14.5)
== END ==
LOC: M SFHCCAPE 08:53
PROVIDERS: ATTEND Physician Assistant Medical
DX: Z79.01 Long term (current) use of anticoagulants (principal)

== ENCOUNTER → 2024-06-10 | Outpatient (REF) | payer MEDICARE ==
[2024-06-10 16:56] LABS: INR 2.43; PROTHROMBIN TIME 25.6 SECONDS (12.5-14.5)
== END ==
LOC: M SFHCCAPE 09:44
PROVIDERS: ATTEND Physician Assistant Medical
DX: Z79.01 Long term (current) use of anticoagulants (principal)

== ENCOUNTER → 2024-07-10 | Outpatient (REF) | payer MEDICARE ==
[2024-07-10 16:43] LABS: INR 2.93; PROTHROMBIN TIME 29.5 SECONDS (12.5-14.5)
== END ==
LOC: M SFHCCAPE 09:47
PROVIDERS: ATTEND Physician Assistant Medical
DX: Z79.01 Long term (current) use of anticoagulants (principal)

== ENCOUNTER → 2024-07-30 | Outpatient (REF) | payer MEDICARE ==
[2024-07-30 17:04] LABS: INR 2.14; PROTHROMBIN TIME 23.2 SECONDS (12.5-14.5)
[2024-07-30 17:30] LABS: ALBUMIN 3.7 G/DL (3.2-5.2); ALKALINE PHOSPHATASE 42 U/L (46-116); ALT/SGPT 22 U/L (7.0-40); AST/SGOT 14 U/L (<34); BILIRUBIN,TOTAL 0.4 MG/DL (0.3-1.2); BLOOD UREA NITROGEN 26 MG/DL (9-23); CARBON DIOXIDE LEVEL 30 MMOL/L (20-31); CHLORIDE LEVEL 105 MMOL/L (98-107); CREATININE FOR GFR 0.93 MG/DL (0.55-1.30); GLOMERULAR FILTRATION RATE > 60.0 (>39); GLUCOSE, FASTING 111 MG/DL (74-106); POTASSIUM SERUM 3.6 MMOL/L (3.5-5.1); SODIUM LEVEL 140 MMOL/L (136-145); TOTAL PROTEIN 7.4 G/DL (5.7-8.2)
[2024-07-30 18:45] LABS: HEMOGLOBIN A1c 7.7 % (4.0-6.0)
== END ==
LOC: M SFHCCAPE 08:39
PROVIDERS: ATTEND Physician Assistant Medical
DX: E11.40 Type 2 diabetes mellitus with diabetic neuropathy, unspecified (principal); Z79.01 Long term (current) use of anticoagulants

== ENCOUNTER → 2024-08-27 | Outpatient (REF) | payer MEDICARE | LOC: M SFHCCAPE 09:08 | PROVIDERS: ATTEND Physician Assistant Medical | DX: Z79.01 Long term (current) use of anticoagulants (principal) ==

== ENCOUNTER → 2024-09-12 | Outpatient (REF) | payer MEDICARE ==
[2024-09-12 16:45] LABS: INR 2.48; PROTHROMBIN TIME 25.9 SECONDS (12.5-14.5)
== END ==
LOC: M SFHCCAPE 09:54
PROVIDERS: ATTEND Physician Assistant Medical
DX: Z79.01 Long term (current) use of anticoagulants (principal)

== ENCOUNTER → 2024-10-09 | Outpatient (REF) | payer MEDICARE ==
[2024-10-09 17:02] LABS: INR 1.83; PROTHROMBIN TIME 21.3 SECONDS (12.5-14.5)
== END ==
LOC: M SFHCCAPE 09:47
PROVIDERS: ATTEND Physician Assistant Medical
DX: Z79.01 Long term (current) use of anticoagulants (principal)

== ENCOUNTER → 2024-10-22 | Outpatient (REF) | payer MEDICARE ==
[2024-10-22 17:13] LABS: INR 2.51; PROTHROMBIN TIME 27.1 SECONDS (12.5-14.5)
== END ==
LOC: M SFHCCAPE 09:44
PROVIDERS: ATTEND Physician Assistant Medical
DX: Z79.01 Long term (current) use of anticoagulants (principal)

== ENCOUNTER → 2024-11-18 | Outpatient (REF) | payer MEDICARE ==
[2024-11-18 16:47] LABS: INR 2.4; PROTHROMBIN TIME 26.2 SECONDS (12.5-14.5)
== END ==
LOC: M SFHCCAPE 09:44
PROVIDERS: ATTEND Physician Assistant Medical
DX: Z79.01 Long term (current) use of anticoagulants (principal)

== ENCOUNTER → 2024-12-03 | Outpatient (REF) | payer MEDICARE ==
[2024-12-03 17:40] LABS: BASO % 0.4 % (0.0-1.0); EOS # 0.1 10^3/uL (0.0-0.5); HEMATOCRIT 38.6 % (36.0-47.0); HEMOGLOBIN 12.4 g/dl (12.0-15.5); LYMPH # 1.4 10^3/uL (1.5-5.0); LYMPH % 16.9 % (24.0-44.0); MEAN CORPUSCULAR HEMOGLOBIN 27.1 pg (27.0-33.0); MEAN CORPUSCULAR HGB CONC 32.1 g/dl (32.0-36.5); MEAN CORPUSCULAR VOLUME 84.3 fl (80.0-96.0); MONO # 0.7 10^3/uL (0.0-0.8); MONO % 9.1 % (2.0-8.0); NEUTROPHILS # 5.8 10^3/uL (1.5-8.5); NEUTROPHILS % 72.3 % (36.0-66.0); PLATELET COUNT, AUTOMATED 153 10^3/uL (150-450); RED BLOOD COUNT 4.58 10^6/uL (4.00-5.40)
[2024-12-03 18:06] LABS: HEMOGLOBIN A1c 7.5 % (4.0-6.0)
[2024-12-03 18:07] LABS: BILIRUBIN,TOTAL 0.6 MG/DL (0.3-1.2); CALCIUM LEVEL 9.3 MG/DL (8.3-10.6); CHOLESTEROL RISK RATIO 3.04 (<5); CREATININE FOR GFR 0.98 MG/DL (0.55-1.30); GLOMERULAR FILTRATION RATE 58.4 (>39); HDL CHOLESTEROL 45.6 MG/DL (>40); NON-HDL-C 93.4 MG/DL; POTASSIUM SERUM 4.5 MMOL/L (3.5-5.1); TOTAL PROTEIN 7.8 G/DL (5.7-8.2)
== END ==
LOC: M SFHCCAPE 09:31
PROVIDERS: ATTEND Physician Assistant Medical
DX: E11.40 Type 2 diabetes mellitus with diabetic neuropathy, unspecified (principal); E78.2 Mixed hyperlipidemia; I48.91 Unspecified atrial fibrillation

== ENCOUNTER → 2024-12-19 | Outpatient (REF) | payer MEDICARE ==
[2024-12-19 16:55] LABS: INR 2.09; PROTHROMBIN TIME 23.6 SECONDS (12.5-14.5)
== END ==
LOC: M SFHCCAPE 08:50
PROVIDERS: ATTEND Physician Assistant Medical
DX: Z79.01 Long term (current) use of anticoagulants (principal)

== ENCOUNTER → 2025-01-13 | Outpatient (REF) | payer MEDICARE ==
[2025-01-13 16:39] LABS: INR 2.31; PROTHROMBIN TIME 25.4 SECONDS (12.5-14.5)
== END ==
LOC: M SFHCCAPE 09:25
PROVIDERS: ATTEND Physician Assistant Medical
DX: Z79.01 Long term (current) use of anticoagulants (principal)

== ENCOUNTER → 2025-02-10 | Outpatient (REF) | payer MEDICARE ==
[2025-02-10 17:22] LABS: INR 2.23; PROTHROMBIN TIME 24.8 SECONDS (12.5-14.5)
== END ==
LOC: M SFHCCAPE 09:14
PROVIDERS: ATTEND Physician Assistant Medical
DX: Z79.01 Long term (current) use of anticoagulants (principal)

== ENCOUNTER → 2025-03-10 | Outpatient (REF) | payer MEDICARE ==
[2025-03-10 17:21] LABS: INR 2.24; PROTHROMBIN TIME 24.8 SECONDS (12.5-14.5)
== END ==
LOC: M SFHCCAPE 09:22
PROVIDERS: ATTEND Physician Assistant Medical
DX: Z79.01 Long term (current) use of anticoagulants (principal)

== ENCOUNTER → 2025-04-01 | Outpatient (REF) | payer MEDICARE ==
[2025-04-01 16:35] LABS: BILIRUBIN,TOTAL 0.4 MG/DL (0.3-1.2); CALCIUM LEVEL 9.6 MG/DL (8.3-10.6); CREATININE FOR GFR 1.05 MG/DL (0.55-1.30); GLOMERULAR FILTRATION RATE 54.4 (>39); POTASSIUM SERUM 4.3 MMOL/L (3.5-5.1); TOTAL PROTEIN 7.6 G/DL (5.7-8.2)
[2025-04-01 16:42] LABS: HEMOGLOBIN A1c 7.7 % (4.0-6.0)
[2025-04-01 17:09] LABS: INR 2.59; PROTHROMBIN TIME 27.8 SECONDS (12.5-14.5)
== END ==
LOC: M SFHCCAPE 13:08
PROVIDERS: ATTEND Physician Assistant Medical
DX: E11.40 Type 2 diabetes mellitus with diabetic neuropathy, unspecified (principal); Z79.01 Long term (current) use of anticoagulants

== ENCOUNTER → 2025-05-29 | Outpatient (REF) | payer MEDICARE ==
[2025-05-29 17:28] LABS: INR 2.48
== END ==
LOC: M SFHCCAPE 09:12
PROVIDERS: ATTEND Physician Assistant Medical
DX: Z79.01 Long term (current) use of anticoagulants (principal)

== ENCOUNTER → 2025-07-10 | Outpatient (REF) | payer MEDICARE ==
[2025-07-10 17:24] LABS: ALT/SGPT 23.0 U/L (7.0-40); AST/SGOT 22.0 U/L (<34); BASO # 0.0 10^3/uL (0.0-0.2); BASO % 0.7 % (0.0-1.0); CALCIUM LEVEL 9.2 MG/DL (8.3-10.6); CARBON DIOXIDE LEVEL 29.0 MMOL/L (20-31); CHLORIDE LEVEL 106.0 MMOL/L (98-107); CREATININE FOR GFR 1.01 MG/DL (0.55-1.30); EOS # 0.1 10^3/uL (0.0-0.5); EOS % 2.4 % (0.0-3.0); GLOMERULAR FILTRATION RATE 56.6 (>39); LYMPH # 1.7 10^3/uL (1.5-5.0); LYMPH % 31.6 % (24.0-44.0); MONO # 0.6 10^3/uL (0.0-0.8); MONO % 11.6 % (2.0-8.0); NEUTROPHILS # 2.9 10^3/uL (1.5-8.5); NEUTROPHILS % 53.5 % (36.0-66.0); PLATELET COUNT, AUTOMATED 162 10^3/uL (150-450); POTASSIUM SERUM 4.3 MMOL/L (3.5-5.1); SODIUM LEVEL 144.0 MMOL/L (136-145)
[2025-07-10 17:26] LABS: INR 2.74
[2025-07-10 17:47] LABS: ESTIMATED AVERAGE GLUCOSE 180.0 MG/DL (60-110)
== END ==
LOC: M SFHCCAPE 08:56
PROVIDERS: ATTEND Physician Assistant Medical
DX: Z79.01 Long term (current) use of anticoagulants (principal); D68.51 Activated protein C resistance; E11.40 Type 2 diabetes mellitus with diabetic neuropathy, unspecified

== ENCOUNTER → 2025-09-16 | Outpatient (CLI) | payer MEDICARE | LOC: M CLY 10:52 | PROVIDERS: ATTEND Physician Assistant Medical | DX: M17.12 Unilateral primary osteoarthritis, left knee (principal) ==

== ENCOUNTER → 2025-09-17 | Outpatient (REF) | payer MEDICARE ==
[2025-09-17 17:36] LABS: INR 2.16
== END ==
LOC: M SFHCCAPE 09:30
PROVIDERS: ATTEND Physician Assistant Medical
DX: Z79.01 Long term (current) use of anticoagulants (principal)

== ENCOUNTER → 2025-10-01 | Outpatient (REF) | payer MEDICARE ==
[2025-10-01 18:23] LABS: ALT/SGPT 21.0 U/L (7.0-40); AST/SGOT 21.0 U/L (<34); CALCIUM LEVEL 9.2 MG/DL (8.3-10.6); CARBON DIOXIDE LEVEL 31.0 MMOL/L (20-31); CHLORIDE LEVEL 99.0 MMOL/L (98-107); CHOLESTEROL LEVEL 148.0 MG/DL (<200); CHOLESTEROL RISK RATIO 3.33 (<5); CREATININE FOR GFR 1.04 MG/DL (0.55-1.30); GLOMERULAR FILTRATION RATE 54.7 (>39); LDL CHOLESTEROL 61.2 MG/DL (<100); NON-HDL-C 103.6 MG/DL; POTASSIUM SERUM 4.1 MMOL/L (3.5-5.1); SODIUM LEVEL 139.0 MMOL/L (136-145); TRIGLYCERIDES LEVEL 212.0 MG/DL (<150)
[2025-10-01 18:42] LABS: ESTIMATED AVERAGE GLUCOSE 200.0 MG/DL (60-110)
== END ==
LOC: M SFHCCAPE 10:55
PROVIDERS: ATTEND Physician Assistant Medical
DX: E11.40 Type 2 diabetes mellitus with diabetic neuropathy, unspecified (principal); E78.2 Mixed hyperlipidemia

== ENCOUNTER → 2025-10-15 | Outpatient (REF) | payer MEDICARE ==
[2025-10-15 17:09] LABS: INR 2.26
== END ==
LOC: M SFHCCAPE 10:06
PROVIDERS: ATTEND Physician Assistant Medical
DX: Z79.01 Long term (current) use of anticoagulants (principal)